=== PATIENT | male | born 1960 | race Caucasian/White ===

== ENCOUNTER 2020-12-25 17:22 | Emergency (ER) | payer MEDICAID, SELFPAY ==
[~2020-12-25] VITALS: Ht 182.9 cm; Wt 92.4 kg
[2020-12-25 17:37] VITALS: BP 114/78
--- NOTE | 2020-12-25 18:28 | NUR ---
CARPENTER/LABOR: PT TO ROOM FROM LOBBY.
[2020-12-25] MEDS ORDERED: LIDOCAINE-MPF 1%, 5ML ONE ×2 (18:39→18:54)
[2020-12-25] MEDS ORDERED: DIPH,PERTUSS(ACELL),TET VAC/PF 0.5 ML IM-VACC ONE ×2 (18:42→19:00)
--- NOTE | 2020-12-25 18:46 | NUR ---
Report to JESUS Mason
--- NOTE | 2020-12-25 18:46 | NUR ---
REPORT RECEIVED FROM ABDULAZIZ LEE
[2020-12-25] MEDS ORDERED: LIDOCAINE-MPF 1%, 5ML INFIL ONE (19:00)
[2020-12-25] MEDS ORDERED: CEFAZOLIN 1,000 MG ONE (19:59)
[2020-12-25] MEDS ORDERED: CEFAZOLIN 1,000 MG IM ONE (20:00)
--- NOTE | 2020-12-25 20:09 | NUR ---
ERP AT BEDSIDE FOR LAC REPAIR
[2020-12-25] MEDS ORDERED: NEOSPORIN OINT. PKT 1 PACKET ONE (20:12)
== END 2020-12-25 20:46 | disposition home or self-care (01) ==
LOC: ED 20:20
DX: S61.412A Laceration without foreign body of left hand, initial encounter (principal); X58.XXXA Exposure to other specified factors, initial encounter; Y93.89 Activity, other specified; Y92.89 Other specified places as the place of occurrence of the external cause; Y99.8 Other external cause status
CPT/HCPCS: 12042; 90471; 90715; 96372; 99285; J0690